=== PATIENT | female | born 1935 | race Caucasian/White ===

== ENCOUNTER → 2016-10-29 | Outpatient (CLI) | payer MEDICARE, BC ==
[~2016-10-29] MED LIST: AZOPT 1% OP; BOT OP; CARDIZEM CD 24240 MG PO; D3-55000 IU PO; DULCOLAX5 M1 PO; ELIQUIS5 MG PO; INSULIN GL100 UNITS/ SC; K-DUR 2020 MEQ PO; LASIX 40MG. TAB40 MG PO; LEVAQUIN500 MG PO; LEVOTHYROXINE0.05 M3 NG; METAMUCIL660 GM PO; METFORMIN1000 MG PO; METOPROLOL SUCC50 M1 PO; PRILOSEC20 M1 PO; SIMVASTATIN40 MG PO; SPIRIVA HA1 PUFF/INH IH
[2016-10-29 13:46] LABS: BUN 19 mg/dL (7-18)
[2016-10-29 13:51] LABS: GFR (ESTIMATED) 33 ML/MIN (59-)
== END ==
LOC: CARL-LAB 10:13
PROVIDERS: Internal Medicine Adolescent Medicine
DX: N18.9 Chronic kidney disease, unspecified (principal)

== ENCOUNTER → 2016-11-04 | Outpatient (CLI) | payer MEDICARE, BC ==
[2016-11-04 13:41] LABS: BUN 20 mg/dL (7-18); GFR (ESTIMATED) 33 ML/MIN (59-)
== END ==
LOC: CARL-LAB 10:48
PROVIDERS: Internal Medicine Adolescent Medicine
DX: N18.9 Chronic kidney disease, unspecified (principal)

== ENCOUNTER → 2017-02-28 | Outpatient (CLI) | payer MEDICARE, BC | LOC: CARL-LAB 09:56 | DX: I48.91 Unspecified atrial fibrillation (principal) ==

== ENCOUNTER → 2017-07-28 | Outpatient (CLI) | payer MEDICARE, BC ==
[2017-07-28 14:38] LABS: BUN 24 mg/dL (7-18)
[2017-07-28 14:43] LABS: GFR (ESTIMATED) 29 ML/MIN (59-)
[2017-07-28 15:23] LABS: HEMOGLOBIN 10.9 g/dL (12.2-16.2); LYMPH # 1.5 K/mm3 (0.7-4.5); LYMPH % 19.9 % (10-50.0)
== END ==
LOC: CARL-LAB 08:17
PROVIDERS: Internal Medicine Adolescent Medicine
DX: E11.9 Type 2 diabetes mellitus without complications (principal); I10 Essential (primary) hypertension; N18.9 Chronic kidney disease, unspecified; I48.1 Persistent atrial fibrillation; E03.9 Hypothyroidism, unspecified